=== PATIENT | female | born 1975 | race Caucasian/White ===

== ENCOUNTER 2016-06-15 02:01 | Emergency (ER) | payer OTHER ==
--- NOTE | 2016-06-15 04:54 | DIAGNOSTIC IMAGING REPORT ---
PROCEDURE: CT SINUS/FACIAL BONES W/CONT CLINICAL INDICATION: Right facial pain and swelling. TECHNIQUE: 95 ml of Isovue 300 injected intravenously and axial images were obtained through the face with coronal reformations. COMPARISON: None. FINDINGS: Mild to moderate soft tissue swelling over the right malar region. There is evidence of dental disease with lucency surrounding the right upper second bicuspid apex. The rest of the soft tissues are normal. There is no evidence of fluid collection or abscess. There is no evidence of mass or adenopathy. Paranasal sinuses are clear. Portion of the orbits and optic nerves are seen, and are normal. IMPRESSION: 1. Mild to moderate soft tissue swelling over the right malar region. 2. There is evidence of dental disease of the right upper second bicuspid. 3. No evidence of fluid collection or abscess. 4. Findings discussed with Dr. Ben Wisdom. All CT scans at this facility use dose modulation, iterative reconstruction, and/or weight-based dosing when appropriate to reduce radiation dose to as low as reasonably achievable.
--- NOTE | 2016-06-15 05:29 | ED NURSING NOTES ---
Clinical Report - Nurses [facility] [address], [place] [address] 06/15/2016 2:05 Patient: BLANCA DAWKINS TRIAGE Triage time 02:27. Acuity: LEVEL 4. Chief Complaint: RIGHT UPPER TOOTHACHE, JAW PAIN and SWELLING OF JAW / FACE and (Went to dentist on and was dx with fractured nerve root and infection in root and jaw; tx with penicillin but says pain is getting worse. Scheduled for surgery for next Friday.). Alert. No acute distress. SEPSIS SCREEN: Sepsis Screen: negative. Infection suspected/documented. --02:32 Tyrone Parker R.N. 02:25 06/15/16. BP: 113/81 (regular adult cuff) taken on the left arm, via an automated monitor, while sitting. HR: 81 (normal rate). RR: 16 (regular, unlabored and normal). O2 saturation: 100% on room air. Temp: 98.3 F (oral). Pain level now: 09/30. --02:32 Tyrone Parker R.N. correction to prior entry -. 02:32 06/15/16. --02:32 Tyrone Parker R.N. Weight: 81.6 kg stated. Height/Length: 63 inches Per Patient. BMI: 31.9. --02:28 Tyrone Parker R.N. Medications Ibuprofen Oral. --02:57 Rocío Peralta Imitrex Oral. --02:57 Rocío Peralta Penicillin V Potassium Oral. --02:57 Rocío Peralta. Allergies No Known Drug Allergy. --02:57 Rocío Peralta. History Arrived by private vehicle. Historian: patient. Primary physician (Dentist in [place]). This started yesterday. She has had moderate sinus pain (R maxillary sinus). She has had chills. She has had low grade fever of 100 F tympanically. No ear pain. 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 Symptoms did not improve after treatment. (800 mg last dose around 2300 06/14/16.). PAST MEDICAL HX: Uses depo injections. SOCIAL HX: Current some days light tobacco smoker (cigarette)- less than 1/2 a pack per day. Occasional alcohol use. No drug use. She has not traveled outside the [place] The patient was not exposed to MRSA. No infectious disease exposure. ABUSE ASSESSMENT: Abuse assessment: The patient was asked "Do you feel safe in your home?" and "Has anyone hurt you or threatened to hurt you?". No report of abuse. SELF HARM ASSESSMENT: A self harm assessment was performed. The patient answered "no" to the question "Do you have thoughts of harming or killing yourself?" and "Have you recently had thoughts about harming or killing others?". FALL RISK ASSESSMENT: Fall risk assessment completed. No fall risk identified. NUTRITIONAL RISK ASSESSMENT: The nutritional risk assessment revealed no deficiencies. FUNCTIONAL ASSESSMENT: Functional assessment: no impairments noted. LEARNING NEEDS ASSESSMENT: The learning needs assessment revealed no barriers. SKIN INTEGRITY ASSESSMENT: Skin integrity risk assessment completed. No skin integrity risk identified. --02:32 Tyrone Parker RJob. PROBLEMS: Back Pain. Migraine Headache. --02:58 Kathryn, Rocío. ADDITIONAL SURGERIES: no known surgeries. Assessment GENERAL / NEURO / PSYCH: Alert. Oriented X 4. Appears in no acute distress. Mcgill Coma Scale: 15- eyes open spontaneously (4); best verbal response- oriented x 4 (5); best motor response- obeys commands (6). Patient appears calm and cooperative. RESPIRATORY: Respirations not labored. SKIN: Skin is warm and dry. --02:32 Tyrone Parker R.N. Interventions ID band on patient. To treatment room. --02:32 Tyrone Parker R.N. To waiting room. --02:32 Tyrone Parker R.N. PHYSICAL ASSESSMENT Ambulatory to room. GENERAL / NEURO / PSYCH: Alert. Oriented X 4. Appears in no acute distress. HEENT: Pupils equal, round and reactive to light. Voice within normal limits. ( small area of swelling and redness located over right upper side of mouth). Mucous membranes are pink. RESPIRATORY: Respirations not labored. SKIN: Skin is warm and dry. --03:00 Rocío Peralta. NURSING PROGRESS NOTES Monitoring of patient in place. Cold pack applied. Reassurance given to the patient. Two patient identifiers checked. Call light placed in reach. Side rails up x 1. Bed placed in lowest position. Brakes of bed on. Patient ready for evaluation- chart flagged. --02:59 Kathryn Rocío 02:58 06/15/16. BP: 123/67. HR: 85. RR: 20. O2 saturation: 98% on room air. Pain level now: 09/30. --02:59 Rocío Peralta 03:43 06/15/2016 Clindamycin PO Capsules 300 mg given. Allergies verified and confirmed 5 rights. --03:43 Rocío Peralta 04:07 06/15/2016 Lidocaine-Epinephrine (Lidocaine-Epinephrine) Injection Injectable 2 % given. Allergies verified and confirmed 5 rights. (given by provider). --04:07 Rocío Peralta 04:08 06/15/2016 Bupivacaine Injection Injectable 0.5 % given. Allergies verified and confirmed 5 rights. (Given by provider). --04:08 Rocío Peralta 04:13 06/15/2016 Site #1 started via IV in the right antecubital space with an 20g angiocath, with aseptic technique and good blood return; one attempt. Blood drawn: rainbow set. Labeled in the presence of the patient and sent to the lab. Saline lock flushed with 10 mL saline. --04:18 Rocío Peralta Patient ID band checked for patient name and birthdate: patient confirmed. Blood samples drawn from the right antecubital space peripheral IV site by nurse ; labeled in presence of the patient and sent to lab: rainbow set. Additional blood sent to lab. Line flushed with 10 mL normal saline post blood draw. --04:19 Rocío Peralta Patient transported to [place] by stretcher with tech. (04:20 Jun 15 2016). --04:20 Rocío Peralta ( Patient reports that the dental block has helped and she feels much better.). --04:45 Rocío Peralta 04:37 06/15/16. BP: 100/54. HR: 102. RR: 20. O2 saturation: 99% on room air. Temp: 98 F (oral). Pain level now: 0/10. --04:45 Rocío Peralta. DISPOSITION / DISCHARGE 05:47 06/15/16. BP: 104/60. HR: 67. RR: 18. O2 saturation: 99% on room air. Temp: 98.7 F (oral). Pain level now: 0/10. --05:50 Rocío Peralta 05:45 06/15/2016 Site #1 removed upon discharge. Catheter intact. Bandaid applied. --05:50 Rocío Peralta 05:50 06/15/16. Condition at departure: stable. The goals identified in the patient's plan of care were met. No learning barriers present. Discharge instructions provided and reviewed with the patient. Reviewed warnings (Do not drive while on sedative medications). Reviewed medication(s) side effects, precautions, dosing and course information. Prescription(s) given to the patient. Patient and academic associate verbalized understanding. Written instructions provided in Czech. ( Follow up with PCP in three days. Follow up with scheduled dental appointment on Friday. Return if symptoms worsen.). The patient was discharged by the physician. She was discharged home and accompanied by academic associate. She left the Emergency Department ambulatory and via private vehicle. Lead Housekeeper driving. FALL RISK ASSESSMENT: Fall risk assessment completed. No fall risk identified. --05:50 Rocío Peralta. Locked/Released at 06/16/2016 6:34 by Rocío Peralta,
--- NOTE | 2016-06-15 05:29 | ED ORDER SUMMARY ---
..... Patient: BLANCA DAWKINS OrderSheet [facility] VisitID: [id number] [place] [address] 40y, F Registration Date/Time: 06/15/2016 ORDER SHEET Weight: 81.6 kg (stated) Allergies: No Known Drug Allergy GENERAL ORDERS: CT Sinus/Facial Bones w Cont Urgent (04:00 06/15/2016 Homer Swanson) (Ack 4:06 AMcQuoid ER Tech1) (4:29 GUnger) CBC w Diff Urgent (04:00 06/15/2016 Homer Swanson) (Ack 4:06 AMcQuoid ER Tech1) (5:25 HSoule) BMP Urgent (04:00 06/15/2016 Homer Swanson) (Ack 4:06 AMcQuoid ER Tech1) (5:25 HSoule) MEDICATION ORDERS: Lidocaine-Epinephrine Injection 1% (give to doc) (03:39 06/15/2016 Homer Swanson) (Ack 3:43 HSoule) (4:07 HSoule) Bupivacaine Injection 0.5 % (soln) (give to doc) (03:39 06/15/2016 Homer Swanson) (Ack 3:43 HSoule) (4:08 HSoule) Clindamycin PO 300 mg (NOW) (03:39 06/15/2016 Homer Swanson) (Ack 3:40 HSoule) (3:43 HSoule) IV FLUIDS: IV Saline Lock (04:00 06/15/2016 Homer Swanson) (Ack 4:08 HSoule) (4:18 HSoule) ORDER SHEET NOTES: [Electronically signed by Rocío Peralta (06:34 06/16/2016)] [Electronically signed by Ben Wisdom Dr. (06:20 06/17/2016)] [Electronically locked/signed by Rocío Peralta (06:34 06/16/2016)]
--- NOTE | 2016-06-15 05:29 | ED NURSING NOTES ---
Clinical Report - Nurses [facility] [address], [place] [address] 06/15/2016 2:05 Patient: BLANCA DAWKINS TRIAGE Triage time 02:27. Acuity: LEVEL 4. Chief Complaint: RIGHT UPPER TOOTHACHE, JAW PAIN and SWELLING OF JAW / FACE and (Went to dentist on and was dx with fractured nerve root and infection in root and jaw; tx with penicillin but says pain is getting worse. Scheduled for surgery for next Friday.). Alert. No acute distress. SEPSIS SCREEN: Sepsis Screen: negative. Infection suspected/documented. --02:32 Tyrone Parker R.N. 02:25 06/15/16. BP: 113/81 (regular adult cuff) taken on the left arm, via an automated monitor, while sitting. HR: 81 (normal rate). RR: 16 (regular, unlabored and normal). O2 saturation: 100% on room air. Temp: 98.3 F (oral). Pain level now: 09/30. --02:32 Tyrone Parker R.N. correction to prior entry -. 02:32 06/15/16. --02:32 Tyrone Parker R.N. Weight: 81.6 kg stated. Height/Length: 63 inches Per Patient. BMI: 31.9. --02:28 Tyrone Parker R.N. Medications Ibuprofen Oral. --02:57 Rocío Peralta Imitrex Oral. --02:57 Rocío Peralta Penicillin V Potassium Oral. --02:57 Rocío Peralta. Allergies No Known Drug Allergy. --02:57 Rocío Peralta. History Arrived by private vehicle. Historian: patient. Primary physician (Dentist in [place]). This started yesterday. She has had moderate sinus pain (R maxillary sinus). She has had chills. She has had low grade fever of 100 F tympanically. No ear pain. 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 Symptoms did not improve after treatment. (800 mg last dose around 2300 06/14/16.). PAST MEDICAL HX: Uses depo injections. SOCIAL HX: Current some days light tobacco smoker (cigarette)- less than 1/2 a pack per day. Occasional alcohol use. No drug use. She has not traveled outside the [place] The patient was not exposed to MRSA. No infectious disease exposure. ABUSE ASSESSMENT: Abuse assessment: The patient was asked "Do you feel safe in your home?" and "Has anyone hurt you or threatened to hurt you?". No report of abuse. SELF HARM ASSESSMENT: A self harm assessment was performed. The patient answered "no" to the question "Do you have thoughts of harming or killing yourself?" and "Have you recently had thoughts about harming or killing others?". FALL RISK ASSESSMENT: Fall risk assessment completed. No fall risk identified. NUTRITIONAL RISK ASSESSMENT: The nutritional risk assessment revealed no deficiencies. FUNCTIONAL ASSESSMENT: Functional assessment: no impairments noted. LEARNING NEEDS ASSESSMENT: The learning needs assessment revealed no barriers. SKIN INTEGRITY ASSESSMENT: Skin integrity risk assessment completed. No skin integrity risk identified. --02:32 Tyrone Parker RJob. PROBLEMS: Back Pain. Migraine Headache. --02:58 Kathryn, Rocío. ADDITIONAL SURGERIES: no known surgeries. Assessment GENERAL / NEURO / PSYCH: Alert. Oriented X 4. Appears in no acute distress. Mio Coma Scale: 15- eyes open spontaneously (4); best verbal response- oriented x 4 (5); best motor response- obeys commands (6). Patient appears calm and cooperative. RESPIRATORY: Respirations not labored. SKIN: Skin is warm and dry. --02:32 Tyrone Parker R.N. Interventions ID band on patient. To treatment room. --02:32 Tyrone Parker R.N. To waiting room. --02:32 Tyrone Parker R.N. PHYSICAL ASSESSMENT Ambulatory to room. GENERAL / NEURO / PSYCH: Alert. Oriented X 4. Appears in no acute distress. HEENT: Pupils equal, round and reactive to light. Voice within normal limits. ( small area of swelling and redness located over right upper side of mouth). Mucous membranes are pink. RESPIRATORY: Respirations not labored. SKIN: Skin is warm and dry. --03:00 Rocío Peralta. NURSING PROGRESS NOTES Monitoring of patient in place. Cold pack applied. Reassurance given to the patient. Two patient identifiers checked. Call light placed in reach. Side rails up x 1. Bed placed in lowest position. Brakes of bed on. Patient ready for evaluation- chart flagged. --02:59 Kathryn Rocío 02:58 06/15/16. BP: 123/67. HR: 85. RR: 20. O2 saturation: 98% on room air. Pain level now: 09/30. --02:59 Rcoío Peralta 03:43 06/15/2016 Clindamycin PO Capsules 300 mg given. Allergies verified and confirmed 5 rights. --03:43 Rocío Peralta 04:07 06/15/2016 Lidocaine-Epinephrine (Lidocaine-Epinephrine) Injection Injectable 2 % given. Allergies verified and confirmed 5 rights. (given by provider). --04:07 Rocío Peralta 04:08 06/15/2016 Bupivacaine Injection Injectable 0.5 % given. Allergies verified and confirmed 5 rights. (Given by provider). --04:08 Rocío Peralta 04:13 06/15/2016 Site #1 started via IV in the right antecubital space with an 20g angiocath, with aseptic technique and good blood return; one attempt. Blood drawn: rainbow set. Labeled in the presence of the patient and sent to the lab. Saline lock flushed with 10 mL saline. --04:18 Rocío Peralta Patient ID band checked for patient name and birthdate: patient confirmed. Blood samples drawn from the right antecubital space peripheral IV site by nurse ; labeled in presence of the patient and sent to lab: rainbow set. Additional blood sent to lab. Line flushed with 10 mL normal saline post blood draw. --04:19 Rocío Peralta Patient transported to [place] by stretcher with tech. (04:20 Jun 15 2016). --04:20 Rocío Peralta ( Patient reports that the dental block has helped and she feels much better.). --04:45 Rocío Peralta 04:37 06/15/16. BP: 100/54. HR: 102. RR: 20. O2 saturation: 99% on room air. Temp: 98 F (oral). Pain level now: 0/10. --04:45 Rocío Peralta. DISPOSITION / DISCHARGE 05:47 06/15/16. BP: 104/60. HR: 67. RR: 18. O2 saturation: 99% on room air. Temp: 98.7 F (oral). Pain level now: 0/10. --05:50 Rocío Peralta 05:45 06/15/2016 Site #1 removed upon discharge. Catheter intact. Bandaid applied. --05:50 Rocío Peralta 05:50 06/15/16. Condition at departure: stable. The goals identified in the patient's plan of care were met. No learning barriers present. Discharge instructions provided and reviewed with the patient. Reviewed warnings (Do not drive while on sedative medications). Reviewed medication(s) side effects, precautions, dosing and course information. Prescription(s) given to the patient. Patient and boat repairer verbalized understanding. Written instructions provided in Mongolian. ( Follow up with PCP in three days. Follow up with scheduled dental appointment on Friday. Return if symptoms worsen.). The patient was discharged by the physician. She was discharged home and accompanied by boat repairer. She left the Emergency Department ambulatory and via private vehicle. Drop Board Worker driving. FALL RISK ASSESSMENT: Fall risk assessment completed. No fall risk identified. --05:50 Rocío Peralta. Locked/Released at 06/16/2016 6:34 by Rocío Peralta,
--- NOTE | 2016-06-15 05:29 | ED ORDER SUMMARY ---
..... Patient: BLANCA DAWKINS OrderSheet [facility] VisitID: [id number] [place] [address] 40y, F Registration Date/Time: 06/15/2016 ORDER SHEET Weight: 81.6 kg (stated) Allergies: No Known Drug Allergy GENERAL ORDERS: CT Sinus/Facial Bones w Cont Urgent (04:00 06/15/2016 Homer Swanson) (Ack 4:06 AMcQuoid ER Tech1) (4:29 GUnger) CBC w Diff Urgent (04:00 06/15/2016 Homer Swanson) (Ack 4:06 AMcQuoid ER Tech1) (5:25 HSoule) BMP Urgent (04:00 06/15/2016 Homer Swanson) (Ack 4:06 AMcQuoid ER Tech1) (5:25 HSoule) MEDICATION ORDERS: Lidocaine-Epinephrine Injection 1% (give to doc) (03:39 06/15/2016 Homer Swanson) (Ack 3:43 HSoule) (4:07 HSoule) Bupivacaine Injection 0.5 % (soln) (give to doc) (03:39 06/15/2016 Homer Swanson) (Ack 3:43 HSoule) (4:08 HSoule) Clindamycin PO 300 mg (NOW) (03:39 06/15/2016 Homer Swanson) (Ack 3:40 HSoule) (3:43 HSoule) IV FLUIDS: IV Saline Lock (04:00 06/15/2016 Homer Swanson) (Ack 4:08 HSoule) (4:18 HSoule) ORDER SHEET NOTES: [Electronically signed by Rocío Peralta (06:34 06/16/2016)] [Electronically signed by Ben Wisdom Dr. (06:20 06/17/2016)] [Electronically locked/signed by Rocío Peralta (06:34 06/16/2016)]
--- NOTE | 2016-06-15 05:29 | ED CLINICAL REPORT ---
Clinical Report - Physicians/Mid Levels [facility] [address] [place] [place] [address] 06/15/2016 2:05 Patient: BLANCA DAWKINS Time Seen: 0340; initial patient contact. Arrived- By private vehicle. Historian- patient. HISTORY OF PRESENT ILLNESS Chief Complaint: DENTAL PAIN. This started about a week and is still present and worsening. It was abrupt in onset and has been constant but is not gone now. Pain described as severe. The patient has had toothache. She has had swelling of the face (right). (went to the dentist. states she was prescribed penicillin. reports being told she needed a "bone graft." Says she has had about 4 doses of the penicillin and it has not helped.). Similar symptoms previously: None. Recent medical care: The patient was seen recently by a health care provider (dentist). REVIEW OF SYSTEMS No skin rash. All systems otherwise negative, except as recorded above. PAST HISTORY See nurses notes. SOCIAL HISTORY Smoker- current status unknown. Occasional alcohol use. No drug use. No recent travel. Is a local resident. ADDITIONAL NOTES The nursing notes have been reviewed. PHYSICAL EXAM Vital Signs: 06/15/2016 02:25 BP: 113/81. HR: 81. RR: 16. O2 saturation: 100%. Temp: 98.3 F. Pain level now: 7/10. Blood pressure normal. Oxygen saturation normal. Appearance: Alert. No acute distress. Head: Normal external inspection. No facial erythema. (no crepitus. no jay abnormalities. no sighs of pott's puffy tumor). Eyes: Pupils equal, round and reactive to light. Conjunctivae and eyelids normal. ENT: Ears normal. Nose normal. Pharynx normal. Lips normal. Uvula midline. No mouth ulcerations, tonsillar exudate, peritonsillar mass, muffled or hoarse voice or dental tenderness. No trismus. (swelling of the gums just cephalad of the right maxillary premolars. no fluctuant area or pustule.). Neck: Trachea midline. No adenopathy. CVS: Normal heart rate and rhythm. Heart sounds normal. Pulses normal. Respiratory: No respiratory distress. Breath sounds normal. Chest nontender. Abdomen: Soft and nontender. No organomegaly. Skin: Normal skin color. No rash. Normal skin turgor. Extremities: Extremities exhibit normal ROM. Extremities nontender. LABS, X-RAYS, AND EKG CT Face: PROCEDURE: CT SINUS/FACIAL BONES W/CONT CLINICAL INDICATION: Right facial pain and swelling. TECHNIQUE: 95 ml of Isovue 300 injected intravenously and axial images were obtained through the face with coronal reformations. COMPARISON: None. FINDINGS: Mild to moderate soft tissue swelling over the right malar region. There is evidence of dental disease with lucency surrounding the right upper second bicuspid apex. The rest of the soft tissues are normal. There is no evidence of fluid collection or abscess. There is no evidence of mass or adenopathy. Paranasal sinuses are clear. Portion of the orbits and optic nerves are seen, and are normal. IMPRESSION: 1. Mild to moderate soft tissue swelling over the right malar region. 2. There is evidence of dental disease of the right upper second bicuspid. 3. No evidence of fluid collection or abscess. Laboratory Tests: CBC w Diff: (MALCOM: 06/15/2016 04:15) ( MsgRcvd 06/15/2016 04:45) Final results Test Result Flag Units (Reference) WHITE BLOOD COUNT 9.7 K/uL (4.5-11.5) RED BLOOD COUNT 4.40 M/uL (4.00-5.20) HEMOGLOBIN 13.4 gm/dL (12.0-16.0) HEMATOCRIT 39.5 % (36.0-46.0) MEAN CELL VOLUME 90 fL (80-100) MEAN CORPUSCULAR HGB 30 pg (26-34) MEAN CORPUSCULAR HGB CONC 34 g/dL (31-37) RED CELL DISTRIBUTION WIDTH 12.6 % (11.6-14.8) PLATELET COUNT 242 K/uL (150-400) NEUTROPHIL % 66.1 % (50-75) LYMPH % 25.0 % (25-40) MONO % 7.9 % (3-14) EOSINOPHIL % 0.4 % (0-4) BASOPHIL % 0.6 % (0-2) BMP: (MALCOM: 06/15/2016 04:15) ( MsgRcvd 06/15/2016 05:06) Final results Test Result Flag Units (Reference) GLUCOSE 103 mg/dL (70-110) BUN 12 mg/dL (7-18) CREATININE 0.5 L mg/dL (0.6-1.3) Estimated GFR >60 mL/min Estimated GFR- >60 mL/min Note: Persistent reduction over 3 months in eGFR<60 mL/min/1.73 m2 defines CKD. Patients with eGFR values>=60 mL/min/1.73 m2 may also have CKD if evidence ofpersistent proteinuria. Additional information may be foundat www.[email or web address].org. SODIUM 140 mmol/L (136-145) POTASSIUM 4.4 mmol/L (3.5-5.1) CHLORIDE 105 mmol/L (98-107) CARBON DIOXIDE 25 mmol/L (21-32) CALCIUM 8.8 mg/dL (8.5-10.1) . PROGRESS AND PROCEDURES Course of Care: The patient is a pleasant 40-year-old female with no pertinent past medical history presenting for evaluation of left sided facial pain. Patient is recent diagnosis dentalinfection and likely extensionfrom the swelling into the face. Head discussion patient in regards to risks and benefits of CT scan of the maxillary face with contrast. Exam was reassuring for no evidence of possible of the tumor however in discussion with patient, she is extremely concerned about more serious type of infection. CT scan has been ordered. Laboratory studies have beenordered. Patient was agreeable to dental block. Please see procedure note for further details. excellent analgesia obtained. Patient tolerated procedure well. No complications. Patient's laboratory studies have returned. Was able to calm is unremarkable 9.7. CT scan does not show any signs of pots puffy tumor. other than pain and some mild swelling to the area, there is no evidence of pots puffy tumor on examination. Because of the patient's negative workup here in the emergency department, patient will be encouraged to follow up with the dentist. Discussed with patient her workup here in the emergency department including diagnosis, home care, follow-up, and return precautions. All questions have been answered. The patient expressed understanding of these instructions and was agreeable to them." antibiotic 7 admitted to the patient's regimen to as the penicillin that she's been prescribed did not significant help with the symptoms that she is having today. Clindamycin will be the antibiotic of choice because of the patient's dental infections and likely anaerobic bacteria. Disposition: Discharged. Condition: good. CLINICAL IMPRESSION 06/15/2016 04:37 BP: 100/54. HR: 102. RR: 20. O2 saturation: 99%. Temp: 98 F. Pain level now: 0/10. Blood pressure normal. Oxygen saturation normal. Dental caries (localized). Periapical dental abscess (acute). right sided facial pain. INSTRUCTIONS Your Current Medications: CONTINUE TAKING THE FOLLOWING MEDICATIONS: Ibuprofen Oral. Imitrex Oral. Penicillin V Potassium Oral. Prescription Medications: Clindamycin take 1 capsule orally every 8 hours for 7 days. No refill. (450 mg PO. Disp suff quant.) Percocet 5 mg/325 mg: take 1 tablet orally every 6 hours as needed for pain. Dispense twelve (12). No refill. Substitution is permissible. Follow-up: Return to the emergency department as needed. Follow up with your doctor in three days. Reason for referral: recheck today's concerns. Summary of care provided to patient via paper. Screening today revealed the patient's blood pressure to be in the normal range. The patient should follow up with a primary care provider for blood pressure management. Understanding of the discharge instructions verbalized by patient. (Electronically signed by Ben Wisdom Dr. 06/17/2016 6:20)
--- NOTE | 2016-06-17 06:20 | ED MAR SUMMARY ---
..... Medication Administration Record [facility] [address] [place] [address] Patient: BLANCA DAWKINS Visit ID: [id number] 40y, F Weight: 81.6 kg Height/Length: 63 in BMI: 31.9 ALLERGIES: No Known Drug Allergy Given 03:43 06/15/2016 Rocío Peralta, Medication Administered: CLINDAMYCIN [PO], Dose: 300 mg Capsules PO. Medication Ordered: Clindamycin PO 300 mg (NOW). Given 04:07 06/15/2016 Rocío Peralta, Medication Administered: LIDOCAINE-EPINEPHRINE [INJECTION] (LIDOCAINE-EPINEPHRINE), Dose: 2 % Injectable Injection. Medication Ordered: Lidocaine-Epinephrine Injection 1% (give to doc). Given 04:08 06/15/2016 Rocío Peralta, Medication Administered: BUPIVACAINE [INJECTION], Dose: 0.5 % Injectable Injection. Medication Ordered: Bupivacaine Injection 0.5 % (soln) (give to doc).
--- NOTE | 2016-06-17 06:20 | ED DISCHARGE INSTRUCTIONS ---
Patient: BLANCA DAWKINS General Instructions [facility] VisitID: [id number] [place] [address] 40y, F Registration Date/Time: 06/15/2016 06/15/2016 04:37 BP: 100/54. HR: 102. RR: 20. O2 saturation: 99%. Temp: 98 F. Pain level now: 0/10. Blood pressure normal. Oxygen saturation normal. Dental caries (localized). Periapical dental abscess (acute). right sided facial pain. INSTRUCTIONS Your Current Medications: CONTINUE TAKING THE FOLLOWING MEDICATIONS: Ibuprofen Oral. Imitrex Oral. Penicillin V Potassium Oral. Prescription Medications: Clindamycin take 1 capsule orally every 8 hours for 7 days. No refill. (450 mg PO. Disp suff quant.) Percocet 5 mg/325 mg: take 1 tablet orally every 6 hours as needed for pain. Dispense twelve (12). No refill. Substitution is permissible. Follow-up: Return to the emergency department as needed. Follow up with your doctor in three days. Reason for referral: recheck today's concerns. Summary of care provided to patient via paper. Screening today revealed the patient's blood pressure to be in the normal range. The patient should follow up with a primary care provider for blood pressure management. Understanding of the discharge instructions verbalized by patient. ADDITIONAL INFORMATION Dental Abscess A dental abscess is an infection of the tooth socket. It often starts with a crack or cavity in the tooth. A pocket of pus forms between the tooth and the bone. The infection causes pain and swelling of the gum, cheek or jaw. The pain is often made worse by drinking hot or cold fluids, or biting on hard foods. Pain may be felt in the facial sinus or in the ear. A severe infection can interfere with swallowing and breathing. In the emergency department or clinic, you will be started on an antibiotic. However, final treatment requires drainage of the pus. This can be done by removing the tooth or performing a root canal. A root canal is done by an oral surgeon and involves drilling an opening in the tooth to drain the pus. After the infection has healed, a crown is placed over the tooth. Home care The following guidelines will help you care for your abscess at home: Avoid hot and cold foods and liquids since your tooth may be sensitive to temperature changes. If your tooth is chipped or cracked, or if there is a large open cavity, applyoil of cloves(available [id number] in drug stores) directly to the tooth to reduce pain. Some pharmacies carry an [id number] "toothache kit". This contains oil of cloves and a paste, which can be applied over the exposed tooth to decrease sensitivity. Apply an ice pack (ice cubes in a plastic bag, wrapped in a towel) over the injured area for 20 minutes every 12 hours the first day for pain relief. Continue this 34 times a day until the pain and swelling goes away. You may use acetaminophen or ibuprofen to control pain, unless another medicine was prescribed. If you have chronic liver or kidney disease or ever had a stomach ulcer or GI bleeding, talk with your doctor before using these medicines. An antibiotic will be prescribed. Take it as directed until completed, even if you are feeling better sooner. Follow-up care Follow up as directed with a dentist or oral surgeon. Even though your pain may improve with the treatment given today, only a dentist or oral surgeon can provide full treatment for this problem. When to seek medical care Get prompt medical attention or contact your doctor if any of the following occur: Your face or eyelid becomes swollen or red Pain worsens or spreads to the neck Fever over 100.4F (38.0C) Unusual drowsiness; headache or stiff neck; weakness, or fainting Pus drains from the gum or tooth Difficulty talking, swallowing or breathing Unable to open your mouth wide Clindamycin Hydrochloride Oral capsule What is this medicine? CLINDAMYCIN (KLIN da MYE sin) is a lincosamide antibiotic. It is used to treat certain kinds of bacterial infections. It will not work for colds, flu, or other viral infections. How should I use this medicine? Take this medicine by mouth with a full glass of water. Follow the directions on the prescription label. You can take this medicine with food or on an empty stomach. If the medicine upsets your stomach, take it with food. Take your medicine at regular intervals. Do not take your medicine more often than directed. Take all of your medicine as directed even if you think your are better. Do not skip doses or stop your medicine early. Talk to your electronic data interchange specialist regarding the use of this medicine in children. Special care may be needed. What side effects may I notice from receiving this medicine? Side effects that you should report to your doctor or health career technical supervisor as soon as possible: allergic reactions like skin rash, itching or hives, swelling of the face, lips, or tongue dark urine pain on swallowing redness, blistering, peeling or loosening of the skin, including inside the mouth unusual bleeding or bruising unusually weak or tired yellowing of eyes or skin Side effects that usually do not require medical attention (report to your doctor or health career technical supervisor if they continue or are bothersome): diarrhea itching in the rectal or genital area joint pain nausea, vomiting stomach pain What may interact with this medicine? chloramphenicol erythromycin kaolin products What if I miss a dose? If you miss a dose, take it as soon as you can. If it is almost time for your next dose, take only that dose. Do not take double or extra doses. Where should I keep my medicine? Keep out of the reach of children. Store at room temperature between 20 and 25 degrees C (68 and 77 degrees F). Throw away any unused medicine after the expiration date. What should I tell my health care provider before I take this medicine? They need to know if you have any of these conditions: kidney disease liver disease stomach problems like colitis an unusual or allergic reaction to clindamycin, lincomycin, or other medicines, foods, dyes like tartrazine or preservatives or trying to get breast-feeding What should I watch for while using this medicine? Tell your doctor or healthcare professional if your symptoms do not start to get better or if they get worse. Do not treat diarrhea with over the counter products. Contact your doctor if you have diarrhea that lasts more than 2 days or if it is severe and watery. Oxycodone Hydrochloride, Acetaminophen Oral tablet What is this medicine? ACETAMINOPHEN; OXYCODONE (a set a WILLIAMS farshad fen; ox i KOE done) is a pain reliever. It is used to treat mild to moderate pain. How should I use this medicine? Take this medicine by mouth with a full glass of water. Follow the directions on the prescription label. Take your medicine at regular intervals. Do not take your medicine more often than directed. Talk to your electronic data interchange specialist regarding the use of this medicine in children. Special care may be needed. Patients over 65 years old may have a stronger reaction and need a smaller dose. What side effects may I notice from receiving this medicine? Side effects that you should report to your doctor or health career technical supervisor as soon as possible: allergic reactions like skin rash, itching or hives, swelling of the face, lips, or tongue breathing difficulties, wheezing confusion light headedness or fainting spells severe stomach pain yellowing of the skin or the whites of the eyes Side effects that usually do not require medical attention (report to your doctor or health career technical supervisor if they continue or are bothersome): dizziness drowsiness nausea vomiting What may interact with this medicine? alcohol antihistamines barbiturates like amobarbital, butalbital, butabarbital, methohexital, pentobarbital, phenobarbital, thiopental, and secobarbital benztropine drugs for bladder problems like solifenacin, trospium, oxybutynin, tolterodine, hyoscyamine, and methscopolamine drugs for breathing problems like ipratropium and tiotropium drugs for certain stomach or intestine problems like propantheline, homatropine methylbromide, glycopyrrolate, atropine, belladonna, and dicyclomine general anesthetics like etomidate, ketamine, nitrous oxide, propofol, desflurane, enflurane, halothane, isoflurane, and sevoflurane medicines for depression, anxiety, or psychotic disturbances medicines for sleep muscle relaxants naltrexone narcotic medicines (opiates) for pain phenothiazines like perphenazine, thioridazine, chlorpromazine, mesoridazine, fluphenazine, prochlorperazine, promazine, and trifluoperazine scopolamine tramadol trihexyphenidyl What if I miss a dose? If you miss a dose, take it as soon as you can. If it is almost time for your next dose, take only that dose. Do not take double or extra doses. Where should I keep my medicine? Keep out of the reach of children. This medicine can be abused. Keep your medicine in a safe place to protect it from theft. Do not share this medicine with anyone. Selling or giving away this medicine is dangerous and against the law. Store at room temperature between 20 and 25 degrees C (68 and 77 degrees F). Keep container tightly closed. Protect from light. This medicine may cause accidental overdose and if it is taken by other adults, children, or pets. Flush any unused medicine down the toilet to reduce the chance of harm. Do not use the medicine after the expiration date. What should I tell my health care provider before I take this medicine? They need to know if you have any of these conditions: brain tumor Crohn's disease, inflammatory bowel disease, or ulcerative colitis drink more than 3 alcohol containing drinks per day drug abuse or addiction head injury heart or circulation problems kidney disease or problems going to the bathroom liver disease lung disease, asthma, or breathing problems an unusual or allergic reaction to acetaminophen, oxycodone, other opioid analgesics, other medicines, foods, dyes, or preservatives or trying to get breast-feeding What should I watch for while using this medicine? Tell your doctor or health career technical supervisor if your pain does not go away, if it gets worse, or if you have new or a different type of pain. You may develop tolerance to the medicine. Tolerance means that you will need a higher dose of the medication for pain relief. Tolerance is normal and is expected if you take this medicine for a long time. Do not suddenly stop taking your medicine because you may develop a severe reaction. Your body becomes used to the medicine. This does NOT mean you are addicted. Addiction is a behavior related to getting and using a drug for a non-medical reason. If you have pain, you have a medical reason to take pain medicine. Your doctor will tell you how much medicine to take. If your doctor wants you to stop the medicine, the dose will be slowly lowered over time to avoid any side effects. You may get drowsy or dizzy. Do not drive, use machinery, or do anything that needs mental alertness until you know how this medicine affects you. Do not stand or sit up quickly, especially if you are an older patient. This reduces the risk of dizzy or fainting spells. Alcohol may interfere with the effect of this medicine. Avoid alcoholic drinks. There are different types of narcotic medicines (opiates) for pain. If you take more than one type at the same time, you may have more side effects. Give your health care provider a list of all medicines you use. Your doctor will tell you how much medicine to take. Do not take more medicine than directed. Call emergency for help if you have problems breathing. The medicine will cause constipation. Try to have a bowel movement at least every 2 to 3 days. If you do not have a bowel movement for 3 days, call your doctor or health career technical supervisor. Do not take Tylenol (acetaminophen) or medicines that have acetaminophen with this medicine. Too much acetaminophen can be very dangerous. Many nonprescription medicines contain acetaminophen. Always read the labels carefully to avoid taking more acetaminophen. You have been given the following additional information: Tooth Abscess Clindamycin Hydrochloride Oral capsule Oxycodone Hydrochloride, Acetaminophen Oral tablet (Electronically signed by Ben Wisdom Dr. 06/17/2016 6:20)
--- NOTE | 2016-06-17 06:20 | ED MAR SUMMARY ---
..... Medication Administration Record [facility] [address] [place] [address] Patient: BLANCA DAWKINS Visit ID: [id number] 40y, F Weight: 81.6 kg Height/Length: 63 in BMI: 31.9 ALLERGIES: No Known Drug Allergy Given 03:43 06/15/2016 Rocío Peralta, Medication Administered: CLINDAMYCIN [PO], Dose: 300 mg Capsules PO. Medication Ordered: Clindamycin PO 300 mg (NOW). Given 04:07 06/15/2016 Rocío Peralta, Medication Administered: LIDOCAINE-EPINEPHRINE [INJECTION] (LIDOCAINE-EPINEPHRINE), Dose: 2 % Injectable Injection. Medication Ordered: Lidocaine-Epinephrine Injection 1% (give to doc). Given 04:08 06/15/2016 Rocío Peralta, Medication Administered: BUPIVACAINE [INJECTION], Dose: 0.5 % Injectable Injection. Medication Ordered: Bupivacaine Injection 0.5 % (soln) (give to doc).
--- NOTE | 2016-06-17 06:20 | ED MED RECONCILIATION SUMMARY ---
Patient: BLANCA DAWKINS Medication Reconciliation Report [facility] VisitID: [id number] [address] [place] [address] 40y, F Registration Date/Time: 06/15/2016 Weight: 81.6 kg Height/Length: 63 in. BMI: 31.9 ALLERGIES: No Known Drug Allergy The patient's Home Medications are listed below: CONTINUE TAKING THE FOLLOWING MEDICATIONS: Ibuprofen Oral Imitrex Oral Penicillin V Potassium Oral The source(s) of the original Home Medication information: Not obtained. The following Medications were given to the patient in the Emergency Department: Clindamycin [PO] PO 300 mg, administered: 06/15/2016 3:43:00 AM Lidocaine-Epinephrine [Injection] Injection 2 %, administered: 06/15/2016 4:07:00 AM Bupivacaine [Injection] Injection 0.5 %, administered: 06/15/2016 4:08:00 AM The following Medications were prescribed to the patient: Clindamycin take 1 capsule orally every 8 hours for 7 days. No refill.(450 mg PO. Disp suff quant.) -- Ben Wisdom Dr. Percocet 5 mg/325 mg: take 1 tablet orally every 6 hours as needed for pain. Dispense twelve (12). No refill. Substitution is permissible. -- Ben Wisdom Dr.
--- NOTE | 2016-06-17 06:20 | ED MED RECONCILIATION SUMMARY ---
Patient: BLANCA DAWKINS Medication Reconciliation Report [facility] VisitID: [id number] [address] [place] [address] 40y, F Registration Date/Time: 06/15/2016 Weight: 81.6 kg Height/Length: 63 in. BMI: 31.9 ALLERGIES: No Known Drug Allergy The patient's Home Medications are listed below: CONTINUE TAKING THE FOLLOWING MEDICATIONS: Ibuprofen Oral Imitrex Oral Penicillin V Potassium Oral The source(s) of the original Home Medication information: Not obtained. The following Medications were given to the patient in the Emergency Department: Clindamycin [PO] PO 300 mg, administered: 06/15/2016 3:43:00 AM Lidocaine-Epinephrine [Injection] Injection 2 %, administered: 06/15/2016 4:07:00 AM Bupivacaine [Injection] Injection 0.5 %, administered: 06/15/2016 4:08:00 AM The following Medications were prescribed to the patient: Clindamycin take 1 capsule orally every 8 hours for 7 days. No refill.(450 mg PO. Disp suff quant.) -- Ben Wisdom Dr. Percocet 5 mg/325 mg: take 1 tablet orally every 6 hours as needed for pain. Dispense twelve (12). No refill. Substitution is permissible. -- Ben Wisdom Dr.
== END 2016-06-15 05:45 | disposition home or self-care (01) ==
LOC: ED SRH 02:01
DX: K04.7 Periapical abscess without sinus (principal); K02.9 Dental caries, unspecified; R51 Headache; F17.210 Nicotine dependence, cigarettes, uncomplicated
CPT/HCPCS: 90047; 95059